=== PATIENT | female | born 1970 | race Caucasian/White ===

== ENCOUNTER 2016-09-06 10:23 | Emergency (ER) | payer SELFPAY ==
[~2016-09-06] VITALS: Ht 160 cm; Wt 78.8 kg
[2016-09-06 10:30] VITALS: Ht 160 cm; Wt 78.8 kg
[2016-09-06] MEDS ORDERED: BELLADONNA/PHENOBARBITAL TAB PO STA (12:04)
[2016-09-06] MEDS ORDERED: KETOROLAC 30 MG INJ IM STA (12:04)
[2016-09-06] MEDS ORDERED: FAMOTIDINE 20 MG TAB PO STA (12:04)
[2016-09-06] MEDS ORDERED: LIDOCAINE/MYLANTA 40 ML BTL PO STA (12:04)
[2016-09-06] MEDS ORDERED: MAG355OR14 PO (12:15)
[2016-09-06] MEDS ORDERED: OXYC-279 PO (12:15)
[2016-09-06] MEDS ORDERED: NAPR-260 PO (12:15)
[2016-09-06] MEDS ORDERED: FAMO40TA52 PO (12:15)
[2016-09-06] MEDS ORDERED: OXYCODONE/ACETAMINOPHEN (5/325) TAB PO ONE (12:30)
--- NOTE | 2016-09-06 13:50 | ERD ---
ER Documentation Chief Complaint Date/Time DATE: 09/06/16 TIME: 13:46 Chief Complaint AP Rad back, nausea x 5 days HPI This is a 46-year-old woman complaining of right upper quadrant abdominal pain radiating to the right upper back similar to multiple previous episodes. She has a long history of acute cholelithiasis and has had multiple ultrasounds documenting it over the last 2 years. She states her pain is similar to previous episodes including the radiation of pain. She ran out of her analgesics and is here for pain control. She denies fevers or chills, no vomiting or diarrhea, no chest pain or shortness of breath, no anorexia, no headache or blurry vision, no dysuria or vaginal discharge. ROS All systems reviewed and are negative except as per history of present illness. Medications Home Meds Active Scripts Naproxen* (Naprosyn*) 500 Mg Tablet, 500 MG PO BID Y for PAIN AND/OR INFLAMMATION, #30 TAB Prov:JEIMY LEWIS MD 09/06/16 Oxycodone HCl/Acetaminophen (Percocet 5-325 mg Tablet) 1 Each Tablet, 1 EACH PO TID for PAIN, #15 TAB Prov:JEIMY LEWIS MD 09/06/16 Famotidine* (Famotidine*) 40 Mg Tablet, 40 MG PO HS for PAIN, #30 TAB Prov:JEIMY LEWIS MD 09/06/16 Mag Hydrox/Al Hydrox/Simeth (Maalox Advanced Suspension) 355 Ml Oral.susp, 2 TSP PO TID for PAIN, #24 OZ Prov:JEIMY LEWIS MD 09/06/16 Allergies Allergies: Coded Allergies: No Known Drug Allergy (Verified Allergy, Unknown, 08/18/14) PMhx/Soc Cholelithiasis History of Surgery: Yes () Anesthesia Reaction: No Hx Neurological Disorder: No Hx Respiratory Disorders: No Hx Cardiac Disorders: No Hx Psychiatric Problems: No Hx Miscellaneous Medical Probl: No Hx Alcohol Use: No Hx Substance Use: No Hx Tobacco Use: No Smoking Status: Never smoker FmHx Family History: No diabetes Physical Exam Vitals Vital Signs Date Time Temp Pulse Resp B/P Pulse Ox O2 Delivery O2 Flow Rate FiO2 09/06/16 10:30 98.2 66 20 117/65 99 Physical Exam GENERAL: Well-developed, well-nourished, well-hydrated, mild discomfort HEENT: Moist mucous membranes, pink conjunctiva, no cervical spine tenderness or step-off deformities, no goiter, no jaundice or icterus, extraocular movements intact without pain. No submandibular induration, and no pharyngeal erythema NEURO: Alert and oriented 3, cranial nerves II through XII intact bilaterally, pupils equal round reactive to light, no focal deficits or facial asymmetry, sensation intact distally Strength 5/5 in upper and lower extremities bilaterally CARDIAC: Regular rate and rhythm, no murmurs rubs or gallops LUNGS: Clear bilaterally no wheezing crackles or stridor ABDOMEN: Soft nontender, no guarding, no rigidity, no rebound, no psoas sign no obturator sign. Normoactive bowel sounds SKIN: Warm and dry to touch, no abrasions, contusions, or hematomas, no lacerations, no ecchymosis, no target lesions, and without ulcers EXTREMITIES: No clubbing cyanosis or edema, calves are bilaterally symmetrical, no Homans sign, no popliteal cord sign. Distal pulses equal and bilateral PSYCH: Normal affect without agitation or irritability Results 24 hrs Current Medications Medications (Trade) Dose Ordered Sig/Pablo Route PRN Reason Start Time Stop Time Status Last Admin Dose Admin Famotidine (Pepcid) 40 mg ONCE STAT PO 09/06/16 12:04 09/06/16 12:06 DC 09/06/16 12:19 Miscellaneous Medication (Gi Cocktail (2)) 40 ml ONCE STAT PO 09/06/16 12:04 09/06/16 12:06 DC 09/06/16 12:20 Belladonna/ Phenobarbital () 2 tab ONCE STAT PO 09/06/16 12:04 09/06/16 12:06 DC 09/06/16 12:19 Ketorolac Tromethamine (Toradol) 30 mg ONCE STAT IM 09/06/16 12:04 09/06/16 12:06 DC 09/06/16 12:20 Oxycodone/ Acetaminophen (Percocet (5/ 325)) 1 tab ONCE ONCE PO 09/06/16 12:30 09/06/16 12:31 DC 09/06/16 12:20 Procedures/MDM I administered Toradol 30 mg intramuscular injection, famotidine 40 mg p.o., GI cocktail 50 cc p.o., and Percocet 1 tablet p.o. with excellent effect. Patient' s symptoms resolved. I reviewed her past medical history, and multiple previous imaging studies. I find no signs or symptoms of acute cholecystitis or biliary obstruction such as jaundice or icterus. She is afebrile, in fact her vital signs are perfectly normal so I suspect she can be managed as an outpatient. I did tell her to follow-up with her PMD for surgical referral for possible elective cholecystectomy. She understood instructions and agreed to plan. Differential diagnoses considered, included but not limited to acute choledocholithiasis, cholangitis, acute coronary syndrome, pulmonary embolism, aortic dissection, abdominal aortic aneurysm, sepsis, stroke, meningitis, encephalitis, pneumonia, appendicitis, cholecystitis, bowel obstruction, pyelonephritis, nephrolithiasis, cystitis, as well as metabolic, hematologic, and electrolyte abnormalities. As well as abscess, cellulitis, fractures, and dislocations. Patient feels much better at this time, and vital signs are normal, symptoms have improved. I did give strict instructions to return to the ED if symptoms continue or worsen, patient will otherwise follow-up with primary care physician. Patient understood instructions and agreed to plan. Departure Diagnosis: Primary Impression: Cholelithiasis Cholelithiasis location: gallbladder Cholecystitis presence: without cholecystitis Biliary obstruction: without biliary obstruction Qualified Code : K80.20 - Calculus of gallbladder without cholecystitis without obstruction Condition: Good Patient Instructions: Gallstones JEIMY LEWIS MD Sep 06, 2016 13:49
== END 2016-09-06 12:44 | disposition home or self-care (01) ==
LOC: FTE 10:23
DX: K80.20 Calculus of gallbladder without cholecystitis without obstruction (principal); R11.0 Nausea
CPT/HCPCS: 96372; 99284; J1885